=== PATIENT | female | born 1950 | race Caucasian/White ===

== ENCOUNTER 2017-06-07 15:40 | Emergency (ER) | payer BC ==
[~2017-06-07] VITALS: Ht 162.6 cm; Wt 68.8 kg
[~2017-06-07 15:40] MED LIST: ADVIL200 MG PO; CALCIUM 500 +1 EACH PO; DAILY VALUE1 EACH PO; FLEXERIL5 MG PO; LIPITOR40 MG PO; LO-DOSE ASPIRIN81 M1 PO; LOTREL 10/21 CAPSULE PO; NORCO 5/3251 TABLET PO; PERCOCET 5/31 TABLET PO; TOPROL XL25 MG PO; VAGIFEM10 MCG VG; VITAMIN D31000 UNI2 PO
[2017-06-07 18:44] VITALS: BP 170/99
== END 2017-06-07 18:45 | disposition home or self-care (01) ==
LOC: EME 15:40
PROC: 0HQ1XZZ Repair Face Skin, External Approach (ICD-10-PCS; principal; 2017-06-07)
DX: S09.90XA Unspecified injury of head, initial encounter (principal); S01.111A Laceration without foreign body of right eyelid and periocular area, initial encounter; W01.0XXA Fall on same level from slipping, tripping and stumbling without subsequent striking against object, initial encounter; I10 Essential (primary) hypertension; E78.5 Hyperlipidemia, unspecified; Z87.891 Personal history of nicotine dependence; Z79.82 Long term (current) use of aspirin; Z88.0 Allergy status to penicillin
CPT/HCPCS: 70450; 70486; 99281; 99283